=== PATIENT | female | born 1945 | race Caucasian/White ===

== ENCOUNTER 2020-01-12 08:10 | Outpatient (CLI) | payer OTHER, MEDICARE ==
[2020-01-13 16:24] LABS: SARS-CoV-2 MS2 Positive; SARS-CoV-2 N Gene Negative; SARS-CoV-2 S Gene Negative; SARS-CoV-2 by NAA Not Detected (NotDetected); SARS-CoV-2 orf1ab Negative
== END 2020-01-12 08:11 | disposition home or self-care (01) ==
LOC: LABBT 08:10
PROVIDERS: ATTEND Internal Medicine Gastroenterology
DX: Z20.828 Contact with and (suspected) exposure to other viral communicable diseases (principal)
CPT/HCPCS: 87635; U0003

== ENCOUNTER → 2020-01-15 | Day surgery (SDC) | payer OTHER, MEDICARE | LOC: ENDO/OP 08:23 | PROVIDERS: ATTEND Internal Medicine Gastroenterology | DX: K21.9 Gastro-esophageal reflux disease without esophagitis (principal) | CPT/HCPCS: 91010; 91034 ==